=== PATIENT | female | born 1980 | race Caucasian/White ===

== ENCOUNTER 2016-09-15 16:53 | Outpatient (CLI) | payer OTHER ==
[~2016-09-15] VITALS: Ht 160 cm; Wt 85.1 kg
[2016-09-15 17:04] VITALS: Ht 160 cm; Wt 85.1 kg
[2016-09-15] MEDS ORDERED: PREN-19 PO (17:05)
--- NOTE | 2016-09-15 17:27 | RADRPT ---
PROCEDURE: US biophysical profile. CLINICAL INDICATION: Decreased motion. TECHNIQUE: Multiple sonographic images of the uterus were obtained. The images were revi ewed on a PACS workstation. COMPARISON: No prior studies are available for comparison. FINDINGS: There is a single live intrauterine gestation. heart rate is 166 beats per minute. The position is cephalic. The placenta is anterior grade II with no abruption or previa. The [place] is 16.1 cm. (Normal = 5-20 cm.) Breathing Movement: 2 Gross Body Movement: 2 Tone: 2 Qualitative Amniotic Fluid Volume: 2 TOTAL: 8 IMPRESSION: 1. The biophysical score is 8/8. RPTAT: QQ .Ger Cuevas MD, MD Date Time Electronically viewed and signed by .Ger Cuevas MD, on 09/15/2016 17:27 .R/
[2016-09-15] MEDS: LACTATED RINGER'S 1,000 ML IV SCH ×2 (18:20→20:45)
--- NOTE | 2016-09-15 18:24 | CONS ---
Date/Time of Note Date/Time of Note DATE: 09/15/16 TIME: 18:16 Consultation Date/Type/Reason Admit Date/Time September 15, 2016 Triage consult Initial Consult Date Reason for Consultation 35 weeks ,complaining of low movement On ultrasound study there is a single live intrauterine gestation, heart rate 166 bpm ,cephalic presentation,. Placenta anterior grade 2 no evidence of abruption or previa. [place] was reported 16.1 cm Biophysical profile 8 of 8 24 HR Interval Summary Free Text/Dictation This patient is a 28 years old 4 2 para 1. She had her previous childbirth with a spontaneous vaginal delivery. . Her main complaint is low movement for the past few hours this morning , however here in triage area we noted that she is having fairly regular contractions In reviewing her past medical history as I mentioned she had one normal vaginal delivery and 2 induced abortions. No other major medical problem On examination her ear nose throat appear to be normal. Neck is normal no neck vein distention no thyromegaly. Chest is clear to auscultation percussion. Heart normal sinus rhythm no murmur. Breasts are soft no free of masses. Abdomen is soft, fetus appears to be in vertex presentation. heart tone is normal but she is anna every 4-5 minutes. Extremities no edema knee-jerk reflex normal. On pelvic examination vulva and vagina were normal cervix is soft closed about 20% effaced In reviewing her heart tracing; she has a fairly good variability and accelerations ,no deceleration . Plan: we did hydrate her orally and will continue hydration by IV if necessary we may give her terbutaline or other measure to prevent her premature delivery. Considering her past obstetrical history there is a possibility of a premature delivery Current Medications Medications (Trade) Dose Ordered Sig/Sarah Route PRN Reason Start Time Stop Time Status Last Admin Dose Admin Lactated Ringer's (Lr) 1,000 ml @ 125 mls/hr Q8H IV 09/15/16 18:30 Detailed Summary Eyes: No discharge, No no complaints, No other, No pain, No redness, No visual change ENT: No bleeding, No congestion, No discharge, No dysphagia, No no complaints, No other, No pain, No sore throat Respiratory: No cough, No no complaints, No other, No pain, No pleuritic pain, No shortness of breath, No sputum, No wheezing Cardiovascular: No chest pain, No edema, No lightheadedness, No no complaints, No orthopenea, No other, No palpitations, No paroxysmal nocturnal dyspnea Gastrointestinal: No blood, No constipation, No decreased appetite, No diarrhea , No flatus, No nausea, No no complaints, No other, No pain, No passing stool, No vomiting Genitourinary: no complaints, other (Full-blown vagina appear to be normal no vaginal bleeding. On pelvic exam cervix is closed thick), No bleeding, No discharge, No dysuria, No flank pain, No hematuria Skin: other (Knee-jerk reflexes are normal), No bruising, No erythema, No laceration, No no complaints, No pruritis, No rash, No skin lesions Neurologic: No confusion, No dizziness, No focal-weakness, No headache, No no complaints, No other, No seizure, No syncope Endocrine: No dry skin, No no complaints, No other, No polydypsia, No polyuria , No temp intolerance Exam/Review of Systems Medications Medications Current Medications Lactated Ringer's (Lr) 1,000 ml @ 125 mls/hr Q8H IV ; Start 09/15/16 at 18:30 VICKEY YOUNGER MD Sep 15, 2016 18:24
[2016-09-15] MEDS ORDERED: TERBUTALINE 1 ML ONE (18:56)
[2016-09-15] MEDS ORDERED: TERBUTALINE 1 MG/ML INJ SC ONE (19:00)
--- NOTE | 2016-09-15 21:00 | QN ---
Documentation Comment Laborist Signout received from Dr. Reynolds, chart reviewed and FHT reviewed and reactive. Terbutaline given at 1900 and UCs spaced a bit but still q2-5 so a second dose of Terbutaline was given with good effect. UCs nearly resolved. Pt remained asymptomatic from UCs. Feeling normal FM since arrival in triage. SVE by Dr. Reynolds revealed closed and long cervix Given pt asymptomatic and contractions have decreased in frequency, will d/c pt home with f/up on 09/17/16 as scheduled with primary OB Strict precautions reviewed for PTL, PPROM and FKC Questions answered to patient's satisfaction ISABEL GONZALEZ MD Sep 15, 2016 21:00
[2016-09-15] MEDS ORDERED: TERBUTALINE 1 MG/ML INJ SC PRN (21:05)
[2016-09-15 21:55] LABS: ADD UMIC NO; URINE BILIRUBIN (Dip) NEGATIVE (NEGATIVE); URINE BLOOD (Dip) NEGATIVE (NEGATIVE); URINE COLOR LT. YELLOW (YELLOW); URINE GLUCOSE (Dip) NEGATIVE (NEGATIVE); URINE KETONES (Dip) NEGATIVE (NEGATIVE); URINE LEUKOCYTE ESTERASE (Dip) NEGATIVE (NEGATIVE); URINE NITRITE (Dip) NEGATIVE (NEGATIVE); URINE TOTAL PROTEIN (Dip) NEGATIVE (NEGATIVE); URINE UROBILINOGEN (Dip) 0.2 E.U./dL (0.1-1.0)
--- NOTE | 2016-09-16 00:57 | TRIAGE ---
OB Triage Datetime Report Generated by CPN: 09/16/2016 00:56 Datetime: 09/16/2016 00:04 Stage of : OB Triage Labor Evaluation Frequency: x4 Monitor Mode: External Duration (sec)2399: 40-60 Quality: Mild Resting Tone [place]: Relaxed Heart Rate FHR Baseline Rate: 150 Monitor Mode: External US Variability: Moderate 6-25 bpm Accelerations: 15X15 Decelerations: None Category: Category I Datetime: 09/15/2016 23:15 Stage of : OB Triage Datetime: 09/15/2016 22:30 Stage of : OB Triage Labor Evaluation Frequency: X3 Monitor Mode: External Duration (sec)2399: 40-50 Quality: Mild Resting Tone [place]: Relaxed Heart Rate FHR Baseline Rate: 160 Variability: Moderate 6-25 bpm Accelerations: 15X15 Decelerations: Variable Category: Category I Datetime: 09/15/2016 21:17 Stage of : OB Triage Datetime: 09/15/2016 21:16 Stage of : OB Triage Labor Evaluation Frequency: 2-6 Monitor Mode: External Duration (sec)2399: 40-70 Quality: Mild Resting Tone [place]: Relaxed Monitor Mode: External US Comments: Pt is to receive 2nd dose of terbutaline. U/S restarted Datetime: 09/15/2016 20:39 Stage of : OB Triage Labor Evaluation Frequency: 2-6 Monitor Mode: External Duration (sec)2399: 40-70 Quality: Mild Resting Tone [place]: Relaxed Datetime: 09/15/2016 19:47 Stage of : OB Triage Labor Evaluation Frequency: 3-9 Monitor Mode: External Duration (sec)2399: 40-60 Quality: Mild Resting Tone [place]: Relaxed Comments: FHR monitoring off as per Dr Cai's orders Datetime: 09/15/2016 19:30 Stage of : OB Triage Datetime: 09/15/2016 19:10 Stage of : OB Triage Labor Evaluation Frequency: 2-3.5 Monitor Mode: External Duration (sec)2399: 40-90 Quality: Mild Resting Tone [place]: Relaxed Heart Rate FHR Baseline Rate: 150 Variability: Moderate 6-25 bpm Accelerations: 15X15 Decelerations: None Category: Category I Datetime: 09/15/2016 18:52 Stage of : OB Triage Datetime: 09/15/2016 18:04 Stage of : OB Triage Vaginal Exam Dilatation (cms): 0.0 Exam By: DR FOROOHAR Vaginal Bleeding: None Cervix, Consistency: Soft Cervix, Position: Posterior Presentation 'A': Cephalic Datetime: 09/15/2016 17:58 Labor Evaluation Frequency: 2 Monitor Mode: External Duration (sec)2399: 50-70 Quality: Mild Resting Tone [place]: Relaxed Heart Rate FHR Baseline Rate: 145 Monitor Mode: External US Variability: Moderate 6-25 bpm Decelerations: None Category: Category I Pain Assessment Pain Scale: 0 Pain Presence: None/Denies Pain Type: N/A Pain Goal: 3 Pain Relief Measures: Comfort Measures Datetime: 09/15/2016 17:14 Stage of : OB Triage Datetime: 09/15/2016 17:00 Stage of : OB Triage Assessment Type: Triage Maternal Assessment Level of Consciousness: Fully Conscious DTR's/Clonus: DTRs 2+; No Clonus Headache: Denies Blurred Vision: No Respiratory Effort: Unlabored; Regular Rhythm; Equal Expansion Breath Sounds, Left: Clear and Equal Breath Sounds, Right: Clear and Equal Nausea/Vomiting: Denies RUQ Epigastric Pain: Denies Lower Extremities Edema: None Degree: None Upper Extremities Edema: None Degree: None Facial Edema: None Temperature Route: Axillary Fall Risk Assessment History of Falling: (0) No Secondary Diagnosis: (0) No Ambulatory Aid: (0) Bedrest/Nurse Assist IV Therapy: (0) No Gait: (0) Normal/Bedrest/Immobile Mental Status: (0) Oriented to Own Ability Fall Score: 0 Fall Risk Score Definition: No Risk: No action required Labor Evaluation Frequency: 1-4 Monitor Mode: External Duration (sec)2399: 30-50 Quality: Mild Pattern: Normal: <= 5 Contractions in 10 Minutes Resting Tone [place]: Relaxed Heart Rate FHR Baseline Rate: 155 Monitor Mode: External US Variability: Moderate 6-25 bpm Decelerations: None Category: Category I Pain Assessment Pain Scale: 0 Pain Presence: None/Denies Pain Type: N/A Pain Goal: 3 Pain Relief Measures: Comfort Measures Datetime: 09/15/2016 16:59 EGA: 35.0 Datetime: 09/15/2016 16:58 Time of Arrival: 09/15/2016 14:46 Arrived By: Ambulatory Arrived From: Home Chief Complaint: C/O DFM SINCE LAST NIGHT, DENIES BLEEDING, LEAKING OR UC'S Movement: Decreased Contractions: Denies/Absent Rupture of Membranes: Denies Vaginal Bleeding: None Vaginal Discharge: Denies Recent Sexual Intercouse: Denies Abdominal Trauma: Not Applicable Patient Complaints: None Additional Patient Complaints: OVARIAN CYST ON RT SIDE Time Provider Notified: 09/15/2016 17:15 Provider Notified: AREN Initial Plan: MONITOR, BPP,IV HYDRATION TERB
== END 2016-09-16 00:15 | disposition home or self-care (01) ==
LOC: OBT 16:53 → L-D 16:56 → OBT 09-16 00:15
DX: O36.8130 Decreased fetal movements, third trimester, not applicable or unspecified (principal); O62.9 Abnormality of forces of labor, unspecified; O09.523 Supervision of elderly multigravida, third trimester; Z3A.35 35 weeks gestation of pregnancy
CPT/HCPCS: 76818; 81003; 96361; J3105; J7120; P9612; Z7500; G0463